=== PATIENT | male | born 1940 | race Caucasian/White ===

== ENCOUNTER 2024-03-22 17:22 | Emergency (ER) | payer MEDICARE ==
[2024-03-22] MEDS ORDERED: Boostrix 0.5 ML (Tdap) VIAL (>/=7 yrs of age) ONE (17:40)
[2024-03-22] MEDS ORDERED: Lidocaine 1% (PF) 30 ML VIAL ONE (17:47)
== END 2024-03-22 18:20 | disposition home or self-care (01) ==
LOC: MADERS 17:22
DX: S51.811A Laceration without foreign body of right forearm, initial encounter (principal); E11.9 Type 2 diabetes mellitus without complications; Z55.6 Problems related to health literacy; Z23 Encounter for immunization; W26.8XXA Contact with other sharp object(s), not elsewhere classified, initial encounter
CPT/HCPCS: 12002; 90471; 90715; J2001